=== PATIENT | female | born 1995 | race Caucasian/White ===

== ENCOUNTER 2017-06-02 19:47 | Emergency (ER) | payer SELFPAY ==
[~2017-06-02] VITALS: Ht 175.3 cm; Wt 81.6 kg
--- NOTE | 2017-06-02 20:57 | PHYS DOC ---
Past History Past Medical History: No Pertinent History Smoking: Non-smoker Adult General Chief Complaint Chief Complaint: VAGINAL BLEEDING HPI HPI 22-year-old female patient without history of states she had her LMP on 05/04/2017 with 4 days of bleeding that was one day less than her usual. Patient states she had morning nausea and increasing size of her breasts and had the home positive test on May 25. Patient complaining of vaginal bleeding since this morning with crampy abdominal pain that was like her usual menstruation. Review of Systems Review of Systems Constitutional: Denies fever or chills [] Eyes: Denies change in visual acuity, redness, or eye pain [] HENT: Denies nasal congestion or sore throat [] Respiratory: Denies cough or shortness of breath [] Cardiovascular: No additional information not addressed in HPI [] GI: Reports abdominal pain, nausea, vomiting, denies bloody stools or diarrhea [ ] : Denies dysuria or hematuria ,[] Musculoskeletal: Denies back pain or joint pain [] Integument: Denies rash or skin lesions [] Neurologic: Denies headache, focal weakness or sensory changes [] Endocrine: Denies polyuria or polydipsia [] All other systems were reviewed and found to be within normal limits, except as documented in this note. Allergies Allergies Allergies Coded Allergies Type Severity Reaction Last Updated Verified No Known Drug Allergies 06/02/17 No Physical Exam Physical Exam Constitutional: Well developed, well nourished, mild distress, non-toxic appearance. [] HENT: Normocephalic, atraumatic, bilateral external ears normal, oropharynx moist, no oral exudates, nose normal. [] Eyes: PERRLA, EOMI, conjunctiva normal, no discharge. [] Neck: Normal range of motion, no tenderness, supple, no stridor. [] Cardiovascular:Heart rate regular rhythm, no murmur [] Lungs & Thorax: Bilateral breath sounds clear to auscultation [] Abdomen: Bowel sounds normal, soft, no tenderness, no masses, no pulsatile masses. [] Skin: Warm, dry, no erythema, no rash. [] Back: No tenderness, no CVA tenderness. [] Extremities: No tenderness, no cyanosis, no clubbing, ROM intact, no edema. [] Neurologic: Alert and oriented X 3, normal motor function, normal sensory function, no focal deficits noted. [] Psychologic: Affect normal, judgement normal, mood normal. [] EKG EKG [] Radiology/Procedures Radiology/Procedures [] Course & Med Decision Making Course & Med Decision Making Pertinent Labs reviewed. (See chart for details) Evaluation of patient in ER showed 21-year-old male patient with a positive home tests and complaining of vaginal bleeding since this morning her menstruation. Patient had unremarkable physical exam with negative urine and blood test. Patient was upset regarding negative test. Patient informed to follow-up with her primary care physician and return to ER if not getting better. [] Dragon Disclaimer Dragon Disclaimer This electronic medical record was generated, in whole or in part, using a voice recognition dictation system. Departure Departure: Impression: Primary Impression: Negative test Additional Impression: Dysmenorrhea Disposition: HOME, SELF-CARE (At 2159) Condition: STABLE Patient Instructions: Dysmenorrhea Additional Instructions: Drink plenty of liquids Follow-up with your primary care physician in 3-5 days Return to ER if not getting better Scripts Naproxen (NAPROXEN) 500 Mg Tablet.dr 1 TAB PO BID, #20 TAB 2 Refills Prov: NAVDEEP EISENBERG MD 06/02/17 Problem Qualifiers NAVDEEP EISENBERG MD Jun 02, 2017 20:57
[2017-06-02] MEDS ORDERED: NAPROXEN 500 MG TABLET PO ONE (22:00)
[2017-06-02] MEDS ORDERED: NAPR500T8 PO (22:00)
[2017-06-02 22:15] VITALS: BP 121/81
== END 2017-06-02 22:15 | disposition home or self-care (01) ==
LOC: ER 19:47
DX: Z32.02 Encounter for pregnancy test, result negative (principal); N94.6 Dysmenorrhea, unspecified
CPT/HCPCS: 36415; 84702; 99284